=== PATIENT | male | born 2000 | race Caucasian/White ===

== ENCOUNTER 2022-01-01 11:35 | Emergency (ER) | payer SELFPAY ==
[2022-01-01 11:49] VITALS: BP 148/81; PULSE 72; RESP 18; TEMP 97.9; BMI 28.5
[2022-01-01] MEDS ORDERED: DIPHTH,PERTUSS(ACELL),TET 0.5 ML DISP.SYRIN IM ONE ×2 (12:30→13:05)
== END 2022-01-01 13:13 | disposition home or self-care (01) ==
LOC: JERFT 11:35
PROC: 3E0234Z Introduction of Serum, Toxoid and Vaccine into Muscle, Percutaneous Approach (ICD-10-PCS; principal; 2022-01-01)
PROC: 0HQEXZZ Repair Left Lower Arm Skin, External Approach (ICD-10-PCS; 2022-01-01)
DX: S51.812A Laceration without foreign body of left forearm, initial encounter (principal); W26.0XXA Contact with knife, initial encounter
CPT/HCPCS: 90715; 99284-25

== ENCOUNTER 2022-01-09 15:21 | Emergency (ER) | payer OTHER ==
[2022-01-09 15:39] VITALS: BP 124/71; PULSE 77; RESP 18; TEMP 98; BMI 28.5
== END 2022-01-09 16:07 | disposition home or self-care (01) ==
LOC: JER 15:21
DX: S51.812A Laceration without foreign body of left forearm, initial encounter (principal); Y99.9 Unspecified external cause status; Z48.02 Encounter for removal of sutures
CPT/HCPCS: 99281-25